=== PATIENT | male | born 1980 | race Caucasian/White ===

== ENCOUNTER 2017-11-27 16:04 | Emergency (ER) | payer MEDICAID, OTHER ==
[2017-11-27] MEDS: DIPHTH/TET/ACEL PERTUSS (ADULT) 0.5 ML VIAL IM (18:12)
[2017-11-27] MEDS: LIDOCAINE 1% (MDV) 10 ML INJ INJ (18:12)
== END 2017-11-27 19:41 | disposition home or self-care (01) ==
LOC: FTE 16:04
DX: S61.012A Laceration without foreign body of left thumb without damage to nail, initial encounter (principal); W26.0XXA Contact with knife, initial encounter; Y92.89 Other specified places as the place of occurrence of the external cause; Z23 Encounter for immunization
CPT/HCPCS: 12002; 90471; 90715; 99283-25

== ENCOUNTER 2017-11-29 18:05 | Emergency (ER) | payer MEDICAID | END 2017-11-29 20:19 | disposition home or self-care (01) | LOC: E/R 18:05 → FTE 20:19 | DX: Z48.01 Encounter for change or removal of surgical wound dressing (principal) | CPT/HCPCS: 99281 ==

== ENCOUNTER 2017-12-04 19:08 | Emergency (ER) | payer MEDICAID | END 2017-12-04 19:38 | disposition home or self-care (01) | LOC: E/R 19:08 | DX: Z48.02 Encounter for removal of sutures (principal) | CPT/HCPCS: 99281; Z7502 ==